=== PATIENT | male | born 1985 | race Caucasian/White ===

== ENCOUNTER 2024-04-12 07:36 | Day surgery (SDC) | payer OTHER ==
[2024-04-09 10:26] VITALS: BMI 27.3
[2024-04-12] MEDS ORDERED: PROPOFOL 40 ML ONE (08:00)
[2024-04-12] MEDS ORDERED: MIDAZOLAM HCL 2 MG/2 ML SINGLE DOSE VIAL ONE (08:00)
[2024-04-12] MEDS ORDERED: LIDOCAINE HCL/PF 2% SDV 5ML VIAL ONE (08:02)
[2024-04-12] MEDS: ceFAZolin SODIUM 1 GM VIAL IVPB ONE ×2 (08:55→08:57)
[2024-04-12] MEDS ORDERED: ceFAZolin SODIUM 1 GM VIAL ONE (08:56)
[2024-04-12] MEDS ORDERED: DEXAMETHASONE SOD PHOSPHATE 4 MG/1 ML VIAL ONE (08:56)
[2024-04-12] MEDS ORDERED: ONDANSETRON 4 MG/2 ML VIAL ONE (08:56)
[2024-04-12] MEDS: BUPIVACAINE HCL/PF 0.5% (5 MG/ML) 30 ML VIAL IJ ONE ×3 (09:04→09:34)
[2024-04-12] MEDS: LIDOCAINE HCL 1%, 10 MG/ML (50 mL VIAL) INF ONE ×3 (09:04→09:34)
[2024-04-12] MEDS ORDERED: oxyCODONE HCL 5 MG TABLET PO PRN (09:48)
[2024-04-12] MEDS ORDERED: ACETAMINOPHEN 1000 MG/100 ML BAG IVPB ONE (09:48)
[2024-04-12] MEDS ORDERED: ONDANSETRON 4 MG/2 ML VIAL IVPUSH PRN (09:48)
[2024-04-12] MEDS ORDERED: KETOROLAC TROMETHAMINE 30 MG/1 ML VIAL IVPUSH ONE (09:48)
[2024-04-12] MEDS ORDERED: LACTATED RINGERS SOLUTION 1,000 ML IV SCH (10:00)
[2024-04-12 12:21] VITALS: RESP 20
[2024-04-12 12:24] VITALS: BP 127/82; PULSE 72; TEMP 97.7
== END 2024-04-12 12:00 | disposition home or self-care (01) ==
LOC: JASU-SURG 07:36
PROVIDERS: ATTEND Urology
PROC: 0VL Male Reproductive System, Occlusion (ICD-10-PCS; principal; 2024-04-12 08:15)
DX: Z30.2 Encounter for sterilization (principal)
CPT/HCPCS: 88302-TC; 94760